=== PATIENT | female | born 1990 | race Caucasian/White ===

== ENCOUNTER 2016-09-12 12:57 | Emergency (ER) | payer OTHER ==
[2016-09-12] MEDS ORDERED: ONDANSETRON 4 MG VIAL ONE ×2 (14:21→17:12)
[2016-09-12] MEDS ORDERED: SODIUM CHLORIDE 0.9% 1,000 ML ONE (15:33)
== END 2016-09-12 17:46 | disposition home or self-care (01) ==
LOC: ER 13:23
DX: R11.2 Nausea with vomiting, unspecified (principal); R19.7 Diarrhea, unspecified; K52.9 Noninfective gastroenteritis and colitis, unspecified; Z87.891 Personal history of nicotine dependence
CPT/HCPCS: 36415; 80053; 81001; 83690; 84703; 85025; 96361; 96374; 96376